=== PATIENT | female | born 1950 | race Caucasian/White ===

== ENCOUNTER 2016-07-26 14:22 | Emergency (ER) | payer OTHER ==
--- NOTE | 2016-07-26 15:52 | DIAGNOSTIC IMAGING REPORT ---
PROCEDURE: XR KNEE 4 VIEWS - LEFT INDICATION: TRAUMA/INJURY TECHNIQUE: Four views. COMPARISON: None. FINDINGS: Osseous structures are osteopenic. Mild to moderate degenerative changes of the medial lateral compartment, and left patellofemoral joint. Small to moderate effusion. IMPRESSION: 1. Osteopenia. 2. Mild to moderate degenerative changes of the left knee. 3. Small to moderate effusion. Consider occult fracture or internal derangement. 4. Findings discussed with Dr. Georges Wall.
--- NOTE | 2016-07-26 16:38 | ED NURSING NOTES ---
Clinical Report - Nurses [facility] [place] [address] 07/26/2016 14:23 Patient: JANE FERNANDEZ TRIAGE Acuity: LEVEL 4. Chief Complaint: INJURY TO LEFT KNEE. Alert. No acute distress. SEPSIS SCREEN: Sepsis Screen. Negative (no infection suspected/documented). SVEN COMA SCORE: [facility] Coma Scale: 15- eyes open spontaneously (4); best verbal response- oriented x 4 (5); best motor response- obeys commands (6). --14:40 Sarabjit Comer R.N. 14:34 07/26/16. BP: 133/53. HR: 74. RR: 16. O2 saturation: 97% on room air. Temp: 98 F. Pain level now: 06/15. --14:40 Sarabjit Comer R.N. Weight: 63.5 kg stated. Height/Length: 63 inches Per Patient. BMI: 24.8. --14:33 Sarabjit Comer R.N. Medications Vitamin D Oral. --14:34 Sarabjit Comer R.N. Co Q 10 Oral. --14:35 Sarabjit Comer R.N. Aspirin Adult Low Strength Oral. --14:35 Sarabjit Comer R.N. Allergies No Known Drug Allergy. --14:35 Sarabjit Comer R.N. History This occurred just prior to arrival. Mechanism of injury: sustained a twisting injury and fell. ( Pt fell through a deck and her L knee, which has a prior injury, bent and twisted past its usual range of motion. Pt cannot bear weight on the L leg.). She has had trouble walking and weakness. No numbness or tingling. 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 PAST MEDICAL HX: Tetanus status: up-to-date. Immunizations: up-to-date. SOCIAL HX: Never smoker. No alcohol use or drug use. No infectious disease exposure. ABUSE ASSESSMENT: No report of abuse. SELF HARM ASSESSMENT: A self harm assessment was performed. The patient answered "no" to the question "Have you recently felt down, depressed, or hopeless?" and "Have you recently had thoughts about harming or killing others?". FALL RISK ASSESSMENT: Fall risk assessment completed. No fall risk identified. NUTRITIONAL RISK ASSESSMENT: The nutritional risk assessment revealed no deficiencies. FUNCTIONAL ASSESSMENT: Functional assessment: no impairments noted. LEARNING NEEDS ASSESSMENT: The learning needs assessment revealed no barriers. SKIN INTEGRITY ASSESSMENT: Skin integrity risk assessment completed. No skin integrity risk identified. --14:40 Sarabjit Comer R.N. PROBLEMS: L knee injury. --14:38 Sarabjit Comer R.N. ADDITIONAL SURGERIES: Appendectomy. Gallbladder Surgery. Hysterectomy. Tonsillectomy. --14:38 Sarabjit Comer R.N. Interventions ID band on patient. To room. --14:40 Sarabjit Comer R.N. PHYSICAL ASSESSMENT To room via wheelchair. GENERAL / NEURO / PSYCH: Oriented X 4. Alert. Appears in no acute distress. EXTREMITIES: Capillary refill is less than 2 seconds in the extremities. Extremity pulses are within normal limits. She was unable to bear weight. Left knee: tenderness and swelling. Limited ROM secondary to pain. SKIN: Skin intact. Skin is warm and dry. ( old scars to L knee). --14:40 Sarabjit Comer R.N. NURSING PROGRESS NOTES The plan of care for this patient has been created. Extremity elevated. Patient gowned. Reassurance given. Two patient identifiers checked. Call light placed in reach. Bed placed in lowest position. Patient ready for evaluation. --14:40 Sarabjit Comer R.N. Cold pack applied. --14:45 Sarabjit Comer R.N. Left leg elevated. --14:46 Sarabjit Comer R.N. ( MD in to assess Pt, spouse at bedside.). --14:46 Sarabjit Comer R.N. ( Pt resting in room, XRs completed.). --15:37 Sarabjit Comer R.N. 15:34 07/26/16. BP: 130/68. HR: 92. O2 saturation: 96% on room air. --15:37 Sarabjit Comer R.N. 16:56 07/26/16. Immobilizer applied to the left knee by medtronics technician; distal pulses intact, sensation intact and motor function within normal limits. --16:56 Bessy Tyler 16:57 07/26/16. Patient fit with new crutches. Crutch training performed by tech; the patient demonstrated proper use. --16:57 Bessy Tyler late entry - 16:30. ( Pt's spouse came out to the desk to ask what is taking so long, says they are waiting on some crutches and a brace but that we have not done that for Pt yet. No orders in computer for said crutches and brace at this time. notified.). --17:10 Sarabjit Comer R.N. late entry -17:00. Immobilizer applied to the left knee by medtronics technician; distal pulses intact, sensation intact and motor function within normal limits. Patient fit with new crutches. --17:11 Sarabjit Comer R.N. DISPOSITION / DISCHARGE Condition at departure: stable. The goals identified in the patient's plan of care were met. No learning barriers present. Discharge instructions provided and reviewed with the patient and spouse. Reviewed medication(s) side effects, precautions, dosing and course information. Prescription(s) given to the patient (Diclofenac). Reviewed referral to an orthopedic surgeon for followup. Patient and spouse verbalized understanding. Written instructions provided in Armenian. The patient was discharged home and accompanied by spouse. She left the Emergency Department on crutches and via private vehicle. Spouse driving. ( Pt dc'd in stable condition, ambulatory with crutches, verbalized understanding of DC instructions). --17:09 Sarabjit Comer R.N. Departure time: :Jul 26 2016. --17:09 Sarabjit Comer R.N. 17:11 07/26/16. BP: unable to obtain due to patient not present. HR: unable to obtain due to patient not present. RR: unable to obtain due to patient not present. O2 saturation: unable to obtain due to patient not present. Temp: unable to obtain due to patient not present. Pain level now unable to obtain due to patient not present. --17:11 Sarabjit Comer R.N. Locked/Released at 07/26/2016 18:03 by Sarabjit Comer R.N.
--- NOTE | 2016-07-26 16:38 | ED ORDER SUMMARY ---
..... Patient: JANE FERNANDEZ OrderSheet [facility] VisitID: [id number] [place] [address] 66y, F Registration Date/Time: 07/26/2016 ORDER SHEET Weight: 63.5 kg (stated) Allergies: No Known Drug Allergy GENERAL ORDERS: Knee 4V Left Urgent (14:57 07/26/2016 Audrey Vogel) (Ack 14:58 Erwin) (15:29 Marcia) Crutches (16:35 07/26/2016 Audrey Vogel) (Ack 16:50 MWinterer R.N.) (16:57 MWinterer R.N.) Knee Immobilizer (16:35 07/26/2016 Audrey Vogel) (Ack 16:50 MWinterer R.N.) (16:57 MWinterer R.N.) MEDICATION ORDERS: IV FLUIDS: ORDER SHEET NOTES: [Electronically signed by Sarabjit Comer R.N. (18:03 07/26/2016)] [Electronically signed by Georges Wall Dr. (20:26 07/27/2016)] [Electronically locked/signed by Sarabjit Comer R.N. (18:03 07/26/2016)]
--- NOTE | 2016-07-26 16:38 | ED CLINICAL REPORT ---
Clinical Report - Physicians/Mid Levels [facility] [address] [place] [address] 07/26/2016 14:23 [id number] Time Seen: 14:34; initial patient contact. Arrived- By private vehicle. Historian- patient. HISTORY OF PRESENT ILLNESS Chief Complaint: Injury to left knee. The injury happened just prior to arrival. Occurred at home. Fell while walking (through a rotten board causing hyperflexion of L knee). Patient is experiencing moderate pain. Patient denies injury to the head or neck. REVIEW OF SYSTEMS The patient complains of pain on weight bearing. She has had swelling. No tingling, weakness, numbness or skin laceration. All systems otherwise negative, except as recorded above. PAST HISTORY ( L knee injury. SURGERIES: Appendectomy. Gallbladder Surgery. Hysterectomy. Tonsillectomy.). SOCIAL HISTORY Never smoker. No alcohol use or drug use. ADDITIONAL NOTES The nursing notes have been reviewed. PHYSICAL EXAM Vital Signs: 07/26/2016 14:34 BP: 133/53. HR: 74. RR: 16. O2 saturation: 97%. Temp: 98 F. Pain level now: 4/10. Have been reviewed. Hypotensive. Heart rate normal. Respiratory rate normal. Temperature normal. Oxygen saturation normal. Appearance: Alert. Oriented X3. No acute distress. Skin: Skin intact. Skin warm and dry. Normal skin color. Extremities: Left knee: moderate tenderness and swelling. Limited ROM secondary to pain (diminished flexion and extension). Medium sized joint effusion present. Neurovascular intact distally. No ligamentous laxity present. No erythema, laceration, abrasion, ecchymosis or puncture wound. No deformity. Lower extremity exam otherwise negative. Extremities otherwise negative. Gait: Gait not tested due to pain. Neuro, Vascular and Tendons: Vascular status intact. Sensation intact. Motor intact. Neuro: Oriented X 3. No motor deficit. No sensory deficit. LABS, X-RAYS, AND EKG Lt Knee X-ray: No fracture. Normal alignment. No bony lesion. Soft tissues normal. Joint spaces normal. Views: AP, lateral and oblique. Technique: good. The X-rays were independently viewed by me and interpreted contemporaneously by me. Prior films were not available for comparison. Interpretation time: 15:48. PROGRESS AND PROCEDURES Disposition: Discharged home in good and improved condition. Condition: good. CLINICAL IMPRESSION Sprain of the left knee. INSTRUCTIONS Apply ice for 20 minutes four times a day until better. Don't apply ice directly to skin. Use crutches until released. Wear knee immobilizer until released. Your Current Medications: CONTINUE TAKING THE FOLLOWING MEDICATIONS: Aspirin Adult Low Strength Oral. Co Q 10 Oral. Vitamin D Oral. Prescription Medications: Diclofenac 50 mg tablets: take 1 tablet orally every 8 hours as needed for pain or stiffness. Dispense thirty (30). No refill. Follow-up: Screening today revealed the patient's blood pressure to be in the pre-hypertensive range. The patient should follow up with a primary care provider for blood pressure management. [facility] with: [facility], , [address], , [place], [address] Follow up in about two days. Call for an appointment. (Electronically signed by Georges Wall Dr. 07/27/2016 20:26)
--- NOTE | 2016-07-26 16:38 | ED ORDER SUMMARY ---
..... Patient: JANE FERNANDEZ OrderSheet [facility] VisitID: [id number] [place] [address] 66y, F Registration Date/Time: 07/26/2016 ORDER SHEET Weight: 63.5 kg (stated) Allergies: No Known Drug Allergy GENERAL ORDERS: Knee 4V Left Urgent (14:57 07/26/2016 Audrey Vogel) (Ack 14:58 Erwin) (15:29 Marcia) Crutches (16:35 07/26/2016 Audrey Vogel) (Ack 16:50 MWinterer R.N.) (16:57 MWinterer R.N.) Knee Immobilizer (16:35 07/26/2016 Audrey Vogel) (Ack 16:50 MWinterer R.N.) (16:57 MWinterer R.N.) MEDICATION ORDERS: IV FLUIDS: ORDER SHEET NOTES: [Electronically signed by Sarabjit Comer R.N. (18:03 07/26/2016)] [Electronically signed by Georges Wall Dr. (20:26 07/27/2016)] [Electronically locked/signed by Sarabjit Comer R.N. (18:03 07/26/2016)]
--- NOTE | 2016-07-26 16:38 | ED NURSING NOTES ---
Clinical Report - Nurses [facility] [place] [address] 07/26/2016 14:23 Patient: JANE FERNANDEZ TRIAGE Acuity: LEVEL 4. Chief Complaint: INJURY TO LEFT KNEE. Alert. No acute distress. SEPSIS SCREEN: Sepsis Screen. Negative (no infection suspected/documented). SVEN COMA SCORE: [place] Coma Scale: 15- eyes open spontaneously (4); best verbal response- oriented x 4 (5); best motor response- obeys commands (6). --14:40 Sarabjit Comer R.N. 14:34 07/26/16. BP: 133/53. HR: 74. RR: 16. O2 saturation: 97% on room air. Temp: 98 F. Pain level now: 06/15. --14:40 Sarabjit Comer R.N. Weight: 63.5 kg stated. Height/Length: 63 inches Per Patient. BMI: 24.8. --14:33 Sarabjit Comer R.N. Medications Vitamin D Oral. --14:34 Sarabjit Comer R.N. Co Q 10 Oral. --14:35 Sarabjit Comer R.N. Aspirin Adult Low Strength Oral. --14:35 Sarabjit Comer R.N. Allergies No Known Drug Allergy. --14:35 Sarabjit Comer R.N. History This occurred just prior to arrival. Mechanism of injury: sustained a twisting injury and fell. ( Pt fell through a deck and her L knee, which has a prior injury, bent and twisted past its usual range of motion. Pt cannot bear weight on the L leg.). She has had trouble walking and weakness. No numbness or tingling. 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 PAST MEDICAL HX: Tetanus status: up-to-date. Immunizations: up-to-date. SOCIAL HX: Never smoker. No alcohol use or drug use. No infectious disease exposure. ABUSE ASSESSMENT: No report of abuse. SELF HARM ASSESSMENT: A self harm assessment was performed. The patient answered "no" to the question "Have you recently felt down, depressed, or hopeless?" and "Have you recently had thoughts about harming or killing others?". FALL RISK ASSESSMENT: Fall risk assessment completed. No fall risk identified. NUTRITIONAL RISK ASSESSMENT: The nutritional risk assessment revealed no deficiencies. FUNCTIONAL ASSESSMENT: Functional assessment: no impairments noted. LEARNING NEEDS ASSESSMENT: The learning needs assessment revealed no barriers. SKIN INTEGRITY ASSESSMENT: Skin integrity risk assessment completed. No skin integrity risk identified. --14:40 Sarabjit Comer R.N. PROBLEMS: L knee injury. --14:38 Sarabjit Comer R.N. ADDITIONAL SURGERIES: Appendectomy. Gallbladder Surgery. Hysterectomy. Tonsillectomy. --14:38 Sarabjit Comer R.N. Interventions ID band on patient. To room. --14:40 Sarabjit Comer R.N. PHYSICAL ASSESSMENT To room via wheelchair. GENERAL / NEURO / PSYCH: Oriented X 4. Alert. Appears in no acute distress. EXTREMITIES: Capillary refill is less than 2 seconds in the extremities. Extremity pulses are within normal limits. She was unable to bear weight. Left knee: tenderness and swelling. Limited ROM secondary to pain. SKIN: Skin intact. Skin is warm and dry. ( old scars to L knee). --14:40 Sarabjit Comer R.N. NURSING PROGRESS NOTES The plan of care for this patient has been created. Extremity elevated. Patient gowned. Reassurance given. Two patient identifiers checked. Call light placed in reach. Bed placed in lowest position. Patient ready for evaluation. --14:40 Sarabjit Comer R.N. Cold pack applied. --14:45 Sarabjit Comer R.N. Left leg elevated. --14:46 Sarabjit Comer R.N. ( MD in to assess Pt, spouse at bedside.). --14:46 Sarabjit Comer R.N. ( Pt resting in room, XRs completed.). --15:37 Sarabjit Comer R.N. 15:34 07/26/16. BP: 130/68. HR: 92. O2 saturation: 96% on room air. --15:37 Sarabjit Comer R.N. 16:56 07/26/16. Immobilizer applied to the left knee by central supply technician supervisor; distal pulses intact, sensation intact and motor function within normal limits. --16:56 Bessy Tyler 16:57 07/26/16. Patient fit with new crutches. Crutch training performed by tech; the patient demonstrated proper use. --16:57 Bessy Tyler late entry - 16:30. ( Pt's spouse came out to the desk to ask what is taking so long, says they are waiting on some crutches and a brace but that we have not done that for Pt yet. No orders in computer for said crutches and brace at this time. notified.). --17:10 Sarabjit Comer R.N. late entry -17:00. Immobilizer applied to the left knee by central supply technician supervisor; distal pulses intact, sensation intact and motor function within normal limits. Patient fit with new crutches. --17:11 Sarabjit Coemr R.N. DISPOSITION / DISCHARGE Condition at departure: stable. The goals identified in the patient's plan of care were met. No learning barriers present. Discharge instructions provided and reviewed with the patient and spouse. Reviewed medication(s) side effects, precautions, dosing and course information. Prescription(s) given to the patient (Diclofenac). Reviewed referral to an orthopedic surgeon for followup. Patient and spouse verbalized understanding. Written instructions provided in Armenian. The patient was discharged home and accompanied by spouse. She left the Emergency Department on crutches and via private vehicle. Spouse driving. ( Pt dc'd in stable condition, ambulatory with crutches, verbalized understanding of DC instructions). --17:09 Sarabjit Comer R.N. Departure time: :Jul 26 2016. --17:09 Sarabjit Comer R.N. 17:11 07/26/16. BP: unable to obtain due to patient not present. HR: unable to obtain due to patient not present. RR: unable to obtain due to patient not present. O2 saturation: unable to obtain due to patient not present. Temp: unable to obtain due to patient not present. Pain level now unable to obtain due to patient not present. --17:11 Sarabjit Comer R.N. Locked/Released at 07/26/2016 18:03 by Sarabjit Comer R.N.
--- NOTE | 2016-07-26 16:38 | ED CLINICAL REPORT ---
Clinical Report - Physicians/Mid Levels [facility] [address] [place] [address] 07/26/2016 14:23 [id number] Time Seen: 14:34; initial patient contact. Arrived- By private vehicle. Historian- patient. HISTORY OF PRESENT ILLNESS Chief Complaint: Injury to left knee. The injury happened just prior to arrival. Occurred at home. Fell while walking (through a rotten board causing hyperflexion of L knee). Patient is experiencing moderate pain. Patient denies injury to the head or neck. REVIEW OF SYSTEMS The patient complains of pain on weight bearing. She has had swelling. No tingling, weakness, numbness or skin laceration. All systems otherwise negative, except as recorded above. PAST HISTORY ( L knee injury. SURGERIES: Appendectomy. Gallbladder Surgery. Hysterectomy. Tonsillectomy.). SOCIAL HISTORY Never smoker. No alcohol use or drug use. ADDITIONAL NOTES The nursing notes have been reviewed. PHYSICAL EXAM Vital Signs: 07/26/2016 14:34 BP: 133/53. HR: 74. RR: 16. O2 saturation: 97%. Temp: 98 F. Pain level now: 4/10. Have been reviewed. Hypotensive. Heart rate normal. Respiratory rate normal. Temperature normal. Oxygen saturation normal. Appearance: Alert. Oriented X3. No acute distress. Skin: Skin intact. Skin warm and dry. Normal skin color. Extremities: Left knee: moderate tenderness and swelling. Limited ROM secondary to pain (diminished flexion and extension). Medium sized joint effusion present. Neurovascular intact distally. No ligamentous laxity present. No erythema, laceration, abrasion, ecchymosis or puncture wound. No deformity. Lower extremity exam otherwise negative. Extremities otherwise negative. Gait: Gait not tested due to pain. Neuro, Vascular and Tendons: Vascular status intact. Sensation intact. Motor intact. Neuro: Oriented X 3. No motor deficit. No sensory deficit. LABS, X-RAYS, AND EKG Lt Knee X-ray: No fracture. Normal alignment. No bony lesion. Soft tissues normal. Joint spaces normal. Views: AP, lateral and oblique. Technique: good. The X-rays were independently viewed by me and interpreted contemporaneously by me. Prior films were not available for comparison. Interpretation time: 15:48. PROGRESS AND PROCEDURES Disposition: Discharged home in good and improved condition. Condition: good. CLINICAL IMPRESSION Sprain of the left knee. INSTRUCTIONS Apply ice for 20 minutes four times a day until better. Don't apply ice directly to skin. Use crutches until released. Wear knee immobilizer until released. Your Current Medications: CONTINUE TAKING THE FOLLOWING MEDICATIONS: Aspirin Adult Low Strength Oral. Co Q 10 Oral. Vitamin D Oral. Prescription Medications: Diclofenac 50 mg tablets: take 1 tablet orally every 8 hours as needed for pain or stiffness. Dispense thirty (30). No refill. Follow-up: Screening today revealed the patient's blood pressure to be in the pre-hypertensive range. The patient should follow up with a primary care provider for blood pressure management. [facility]up with: [facility], , [address], , [place], [address] Follow up in about two days. Call for an appointment. (Electronically signed by Georges Wall Dr. 07/27/2016 20:26)
--- NOTE | 2016-07-27 20:26 | ED MAR SUMMARY ---
..... Medication Administration Record [facility] [address] [place], [place] [id number] Patient: JANE FERNANDEZ Visit ID: [id number] 66y, F Weight: 63.5 kg Height/Length: 63 in BMI: 24.8 ALLERGIES: No Known Drug Allergy
--- NOTE | 2016-07-27 20:26 | ED MAR SUMMARY ---
..... Medication Administration Record [facility] [address] [place], [place] [id number] Patient: JANE FERNANDEZ Visit ID: [id number] 66y, F Weight: 63.5 kg Height/Length: 63 in BMI: 24.8 ALLERGIES: No Known Drug Allergy
--- NOTE | 2016-07-27 20:26 | ED MED RECONCILIATION SUMMARY ---
Patient: JANE FERNANDEZ Medication Reconciliation Report [facility] VisitID: [id number] [address] [place] [address] 66y, F Registration Date/Time: 07/26/2016 Weight: 63.5 kg Height/Length: 63 in. BMI: 24.8 ALLERGIES: No Known Drug Allergy The patient's Home Medications are listed below: CONTINUE TAKING THE FOLLOWING MEDICATIONS: Aspirin Adult Low Strength Oral Co Q 10 Oral Vitamin D Oral The source(s) of the original Home Medication information: Not obtained. The following Medications were given to the patient in the Emergency Department: None. The following Medications were prescribed to the patient: Diclofenac 50 mg tablets: take 1 tablet orally every 8 hours as needed for pain or stiffness. Dispense thirty (30). No refill. -- Georges Wall Dr.
--- NOTE | 2016-07-27 20:26 | ED DISCHARGE INSTRUCTIONS ---
Patient: JANE FERNANDEZ General Instructions [facility] VisitID: [id number] [address] [place] [address] 66y, F Registration Date/Time: 07/26/2016 Sprain of the left knee. INSTRUCTIONS Apply ice for 20 minutes four times a day until better. Don't apply ice directly to skin. Use crutches until released. Wear knee immobilizer until released. Your Current Medications: CONTINUE TAKING THE FOLLOWING MEDICATIONS: Aspirin Adult Low Strength Oral. Co Q 10 Oral. Vitamin D Oral. Prescription Medications: Diclofenac 50 mg tablets: take 1 tablet orally every 8 hours as needed for pain or stiffness. Dispense thirty (30). No refill. Follow-up: Screening today revealed the patient's blood pressure to be in the pre-hypertensive range. The patient should follow up with a primary care provider for blood pressure management. Follow[facility]up with: [facility], , [address], [place], [address] Follow up in about two days. Call for an appointment. ADDITIONAL INFORMATION Sprain, Knee A sprain is an injury to the ligaments or capsule that holds a joint together. There are no broken bones. Most sprains take three to six weeks to heal. If the ligament is completely torn (severe sprain), it can take months to recover from. Most knee sprains are treated with a splint, knee immobilizer or elastic wrap for support. Severe sprains may require surgery. Home care The following guidelines will help you care for your injury at home: Stay off the injured leg as much as possible until you can walk on it without pain. If you have a lot of pain with walking, crutches or a walker may be prescribed. (These can be rented or purchased at many pharmacies and surgical or orthopedic supply stores). Follow your doctor's advice regarding when to begin bearing weight on that leg. Keep your leg elevated to reduce pain and swelling. When sleeping, place a pillow under the injured leg. When sitting, support the injured leg so it is level with your waist. This is very important during the first 48 hours. Apply an ice pack (ice cubes in a plastic bag, wrapped in a towel) over the injured area for 20 minutes every 12 hours the first day. You can place the ice pack directly over the splint. If a Velcro knee immobilizer was applied, you can open this to apply the ice pack directly to the knee. Continue with ice packs 34 times a day for the next two days, then as needed for the relief of pain and swelling. You may use acetaminophen or ibuprofen to control pain, unless another pain medicine was prescribed. If you have chronic liver or kidney disease or ever had a stomach ulcer or GI bleeding, talk with your doctor before using these medicines. If you were given a splint, keep it completely dry at all times. Bathe with your splint out of the water, protected with a large plastic bag, rubber-banded at the top end. If a fiberglass splint gets wet, you can dry it with a hair-dryer. If you have a Velcro knee immobilizer, you can remove this to bathe, unless told otherwise. Follow-up care Follow up with your doctor as advised. Any X-rays you had today dont show any broken bones, breaks, or fractures. Sometimes fractures dont show up on the first X-ray. Bruises and sprains can sometimes hurt as much as a fracture. These injuries can take time to heal completely. If your symptoms dont improve or they get worse, talk with your doctor. You may need a repeat X-ray. When to seek medical care Get prompt medical attention if any of the following occur: The plaster cast or splint becomes wet or soft The fiberglass cast or splint remains wet for more than 24 hours Pain or swelling increases Toes become cold, blue, numb or tingly Knee Immobilizer A KNEE IMMOBILIZER is used to provide support and limit movement of the knee. This will make you more comfortable as your injury heals. Home Use: 1) Unless told otherwise, the knee brace should be worn whenever you are out of bed. You may wear it in bed while asleep for the first few nights or until the pain starts to go away. Otherwise, remove the brace at night to avoid muscle stiffness from lack of joint movement. 2) You can open the velcro brace to dress, bathe and apply ice packs as directed. Get Prompt Medical Attention if any of the following occur: -- Worsening pain in the knee -- Weakness or numbness or tingling in the foot -- Increased swelling, redness or warmth of the knee joint You have been given the following additional information: Knee Sprain Knee Immobilizer (Electronically signed by Georges Wall Dr. 07/27/2016 20:26)
--- NOTE | 2016-07-27 20:26 | ED MED RECONCILIATION SUMMARY ---
Patient: JANE FERNANDEZ Medication Reconciliation Report [facility] VisitID: [id number] [address] [place] [address] 66y, F Registration Date/Time: 07/26/2016 Weight: 63.5 kg Height/Length: 63 in. BMI: 24.8 ALLERGIES: No Known Drug Allergy The patient's Home Medications are listed below: CONTINUE TAKING THE FOLLOWING MEDICATIONS: Aspirin Adult Low Strength Oral Co Q 10 Oral Vitamin D Oral The source(s) of the original Home Medication information: Not obtained. The following Medications were given to the patient in the Emergency Department: None. The following Medications were prescribed to the patient: Diclofenac 50 mg tablets: take 1 tablet orally every 8 hours as needed for pain or stiffness. Dispense thirty (30). No refill. -- Georges Wall Dr[address]
== END 2016-07-26 17:09 | disposition home or self-care (01) ==
LOC: ED SRH 14:22
DX: S83.92XA Sprain of unspecified site of left knee, initial encounter (principal); W13.3XXA Fall through floor, initial encounter; Y93.01 Activity, walking, marching and hiking; Y99.9 Unspecified external cause status; Y92.009 Unspecified place in unspecified non-institutional (private) residence as the place of occurrence of the external cause